=== PATIENT | male | born 1975 | race Caucasian/White ===

== ENCOUNTER 2020-12-06 05:25 | Day surgery (SDC) | payer BC ==
[~2020-12-06] VITALS: Ht 190.5 cm; Wt 101.9 kg
[2020-12-06] MEDS ORDERED: EDARB4025TAB PO (06:05)
[2020-12-06] MEDS ORDERED: PROTONIX 40MG T40 MG PO (06:05)
[2020-12-06 06:06] VITALS: BP 121/81; PULSE 71; TEMP 98.3
[2020-12-06 08:15] VITALS: BP 113/62; PULSE 69; TEMP 97
--- NOTE | 2020-12-06 08:15 | NUR ---
Patient arrives to [facility] [place] [facility] post-procedure via cart, accompanied by MATERNITY NURSE and INSURANCE AND FINANCIAL SERVICES AGENT. He is asleep with an oral airway in place and oxygen via mask. The MATERNITY NURSE removes the oral airway and oxygen is titrated to 2 L per mask. His is at the bedside. Monitoring is applied -VSS and WNL on oxygen. Patient awakens to light touch and voice, talks with his . Operative site is covered with a clean/dry/intact bandage. He denies pain or needs at this time. Lights are dimmed for comfort.
[2020-12-06 08:30] VITALS: BP 121/66; PULSE 61
--- NOTE | 2020-12-06 08:30 | NUR ---
Oxygen is titrated to off. Patient is awake/alert. He is sitting up in bed. He is given water and drinks that without issue. He refuses food, as he would like to eat breakfast at home. VSS on room air. Pain is mild at the pre-op baseline. He and his have some questions for Dr. Payne. Dr. Payne will come speak to them at the earliest convenience.
[2020-12-06] MEDS ORDERED: NORCO 325 MG-51 TAB PO (08:36)
--- NOTE | 2020-12-06 08:38 | NUR ---
Dr. Payne comes to the bedside and speaks with the patient and his .
[2020-12-06 08:45] VITALS: BP 114/76; PULSE 54
[2020-12-06 09:00] VITALS: BP 111/76; PULSE 55
--- NOTE | 2020-12-06 09:47 | NUR ---
Patient has met discharge criteria. Discharge instructions are discussed. He denies any questions and verbalizes understanding. PIV is removed with catheter intact and hemostasis achieved. He changes to his clothing independently. He is escorted to the exit via wheelchair by staff and discharged to home in a private vehicle to the care of his at 0947.
== END 2020-12-06 09:47 | disposition home or self-care (01) ==
LOC: SDCO 05:25
DX: N50.82 Scrotal pain (principal); I10 Essential (primary) hypertension; Z20.822 Contact with and (suspected) exposure to COVID-19; Z79.899 Other long term (current) drug therapy
CPT/HCPCS: J0690; J1100; J2250; J2405; J2704; J3010; J7120